=== PATIENT | male | born 1955 | race Caucasian/White ===

== ENCOUNTER 2018-03-06 11:01 | Inpatient (IN) | payer MEDICAID ==
[2018-03-06] VITALS (7 sets, daily range): BP systolic 108–143; BP diastolic 51–96
[~2018-03-06] VITALS: Ht 172.7 cm; Wt 83.0 kg
[~2018-03-06 11:01] MED LIST: CLOP75TA16 PO; FAMO20TA8 PO; FERR210T PO; INSU100V3 SUBCUT; NPH,100V SQ; OMEG-31 PO
[2018-03-06 11:47] LABS: BASOPHILS % 2.4 % (0.0-2.0); EOSINOPHILS % 4.9 % (0.0-5.0); HEMATOCRIT. 29.5 % (42.0-52.0); HEMOGLOBIN. 9.7 g/dL (14.0-18.0); LYMPHOCYTES % 13.9 % (20.0-50.0); MEAN CORPUSCULAR HEMOGLOBIN 30.2 pg (28.0-32.0); MEAN CORPUSCULAR VOLUME 91.8 fL (80.0-94.0); MEAN PLATELET VOLUME 10.6 fl (7.4-10.4); MONOCYTES % 10.5 % (2.0-8.0); NEUTROPHILS % 68.3 % (40.0-76.0); PLATELET 88 x1000/uL (130-400); RED BLOOD CELL COUNT 3.22 mill/uL (4.7-6.1); RED CELL DISTRIBUTION WIDTH 16.3 % (11.6-14.6)
[2018-03-06 12:28] LABS: INR 1.1; PARTIAL THROMBOPLASTIN TIME 27.8 sec (23.4-31.0)
[2018-03-06] MEDS ORDERED: LIDOCAINE HCL 1% 20ML VIAL (Pyxis) INJ ONE (12:52)
[2018-03-06] MEDS ORDERED: ISOS60TA4 PO (12:53)
[2018-03-06] MEDS ORDERED: IODIXANOL 320MG/ML 100 ML BOTTLE IV ONE (12:53)
[2018-03-06] MEDS ORDERED: ASPI-1159 PO (12:53)
[2018-03-06] MEDS ORDERED: ATOR-2 PO (12:53)
[2018-03-06] MEDS ORDERED: GABA-529 PO (12:53)
[2018-03-06] MEDS ORDERED: METO-539 PO (12:53)
[2018-03-06] MEDS ORDERED: FENTANYL CITRATE/PF 50MCG/ML 2ML VIAL ONE (13:31)
[2018-03-06] MEDS ORDERED: MIDAZOLAM HCL 2 MG/2 ML VIAL ONE (13:31)
[2018-03-06] MEDS ORDERED: IOHEXOL-300 100 ML BOTTLE ONE (13:53)
[2018-03-06] MEDS ORDERED: IODIXANOL 320MG/ML 200ML BOTTLE ONE (14:10)
[2018-03-06] MEDS ORDERED: ATROPINE SULFATE 1MG/10ML SYR IV PRN (14:30)
[2018-03-06] MEDS ORDERED: ACETAMINOPHEN 325MG TABLET PO PRN (14:30)
[2018-03-06] MEDS ORDERED: ONDANSETRON HCL 4MG/2ML VIAL IV PRN (14:30)
[2018-03-06] MEDS ORDERED: MORPHINE SULFATE 4 MG/ML CPJ (NOT FOR IM USE) IV PRN (14:30)
[2018-03-06] MEDS ORDERED: ASPIRIN 325MG TABLET ONE (14:34)
[2018-03-06] MEDS ORDERED: CLOPIDOGREL 75MG TABLET ONE (14:35)
[2018-03-06] MEDS ORDERED: HEPARIN SODIUM 1,000 UNIT/1ML VIAL IV ONE (14:44)
[2018-03-06] MEDS ORDERED: NITROGLYCERIN 50MCG/ML 10ML VIAL (CATH LAB) IV ONE (15:00)
[2018-03-06] MEDS ORDERED: NICARDIPINE 100MCG/ML 10ML VIAL (CATH LAB) IV ONE (15:00)
[2018-03-06] MEDS: GABAPENTIN 100MG CAPSULE PO SCH (18:36)
[2018-03-06] MEDS ORDERED: ATORVASTATIN CALCIUM 40MG TABLET PO SCH (21:00)
[2018-03-07] VITALS (16 sets, daily range): BP systolic 98–167; BP diastolic 36–98
[2018-03-07 07:33] LABS: BASOPHILS % 1.3 % (0.0-2.0); EOSINOPHILS % 5.6 % (0.0-5.0); HEMATOCRIT. 26.4 % (42.0-52.0); HEMOGLOBIN. 8.7 g/dL (14.0-18.0); LYMPHOCYTES % 7.4 % (20.0-50.0); MEAN CORPUSCULAR HEMOGLOBIN 30.1 pg (28.0-32.0); MEAN CORPUSCULAR VOLUME 91.3 fL (80.0-94.0); MONOCYTES % 9.3 % (2.0-8.0); NEUTROPHILS % 76.4 % (40.0-76.0); PLATELET 95 x1000/uL (130-400); RED BLOOD CELL COUNT 2.89 mill/uL (4.7-6.1); RED CELL DISTRIBUTION WIDTH 15.9 % (11.6-14.6)
[2018-03-07] MEDS: GABAPENTIN 100MG CAPSULE PO SCH ×2 (08:47→14:29)
[2018-03-07] MEDS ORDERED: ISOSORBIDE MONONITRATE 120MG TABLET SR 24HR PO SCH (09:00)
[2018-03-07] MEDS ORDERED: CLOPIDOGREL 75MG TABLET PO SCH (09:00)
[2018-03-07] MEDS ORDERED: ASPIRIN 81MG EC TABLET PO SCH (09:00)
[2018-03-07] MEDS ORDERED: FISH OIL/OMEGA-3 FATTY ACIDS 1000MG CAPSULE PO SCH ×2 (09:00→11:00)
[2018-03-07] MEDS ORDERED: METOPROLOL TARTRATE 50MG TABLET PO SCH (09:00)
[2018-03-07] MEDS ORDERED: FOLIC ACID/VITAMIN B COMP W-C TABLET PO SCH (18:00)
== END 2018-03-07 22:42 | disposition home or self-care (01) | DRG 175 ==
LOC: CCL 11:01 → 3WST 11:02
PROVIDERS: ADMIT Internal Medicine Cardiovascular Disease; ATTEND Internal Medicine Cardiovascular Disease
PROC: 4A023N7 Measurement of Cardiac Sampling and Pressure, Left Heart, Percutaneous Approach (ICD-10-PCS; principal; 2018-03-06)
PROC: 027034Z Dilation of Coronary Artery, One Artery with Drug-eluting Intraluminal Device, Percutaneous Approach (ICD-10-PCS; 2018-03-06)
PROC: B2111ZZ Fluoroscopy of Multiple Coronary Arteries using Low Osmolar Contrast (ICD-10-PCS; 2018-03-06)
PROC: B41F1ZZ Fluoroscopy of Right Lower Extremity Arteries using Low Osmolar Contrast (ICD-10-PCS; 2018-03-06)
PROC: 5A1D70Z Performance of Urinary Filtration, Intermittent, Less than 6 Hours Per Day (ICD-10-PCS; 2018-03-07)
DX: I25.10 Atherosclerotic heart disease of native coronary artery without angina pectoris (principal); I12.0 Hypertensive chronic kidney disease with stage 5 chronic kidney disease or end stage renal disease; N18.6 End stage renal disease; E78.5 Hyperlipidemia, unspecified; Z99.2 Dependence on renal dialysis
CPT/HCPCS: 36415; 80048; 82962; 85025; 85347; 85610; 85730; 92928; 93005; 93454; C1760; C1769; C1874; C1887; C1893; J1644; J2250; J3010; J3490; Q9967

== ENCOUNTER 2018-07-11 13:49 | Inpatient (IN) | payer MEDICAID ==
[~2018-07-11] VITALS: Ht 170.2 cm; Wt 98.1 kg
[~2018-07-11 13:49] MED LIST changes: +ASPI-1159 PO; +ATOR-2 PO; +GABA-529 PO; +ISOS60TA4 PO; +METO-539 PO
[2018-07-11 14:47] LABS: HEMATOCRIT. 27.2 % (42.0-52.0); HEMOGLOBIN. 8.7 g/dL (14.0-18.0); MEAN CORPUSCULAR HEMOGLOBIN 27.5 pg (28.0-32.0); MEAN CORPUSCULAR VOLUME 85.9 fL (80.0-94.0); MEAN PLATELET VOLUME 9.6 fl (7.4-10.4); PLATELET 315 x1000/uL (130-400); RED BLOOD CELL COUNT 3.17 mill/uL (4.7-6.1); RED CELL DISTRIBUTION WIDTH 18.6 % (11.6-14.6)
[2018-07-11 14:53] LABS: CHLORIDE 87 mEq/L (98-107)
[2018-07-11 14:57] LABS: ETHANOL BLOOD < 10 mg/dL
[2018-07-11 15:10] LABS: PLATELET ESTIMATE NORMAL
[2018-07-11] MEDS ORDERED: PIPERACILLIN/TAZ 3.375G PREMIX 50 ML IV ONE (15:30)
[2018-07-11] MEDS ORDERED: ONDANSETRON HCL 4MG/2ML INJ IV ONE (15:30)
[2018-07-11] MEDS ORDERED: CLINDAMYCIN 600 MG in DEXTROSE 5% WATER 50 ML IV ONE (15:30)
[2018-07-11] MEDS ORDERED: GENTAMICIN 80MG PREMIX 100 ML IV ONE (15:30)
[2018-07-11] MEDS ORDERED: FENTANYL CITRATE/PF 50MCG/ML 2ML VIAL IV ONE (15:30)
[2018-07-11] MEDS ORDERED: ASPIRIN 81MG TABLET PO ONE (15:30)
[2018-07-11] MEDS ORDERED: LEVOFLOXACIN 500MG PREMIX 100 ML IV ONE (16:00)
[2018-07-11 16:39] LABS: PARTIAL THROMBOPLASTIN TIME 72.3 sec (23.4-31.0)
[2018-07-11 16:40] LABS: PROTHROMBIN TIME 111.8 sec (9.1-11.1)
[2018-07-11 16:41] LABS: INR 11.6
[2018-07-11 16:54] LABS: PHOSPHORUS 5.9 mg/dL (2.5-4.9)
[2018-07-11] MEDS ORDERED: DIATR MEGLU/DIATRIZOATE SOLN 120ML ONE (17:21)
[2018-07-11 23:00] VITALS: BP 104/53
[2018-07-12] VITALS (11 sets, daily range): BP systolic 96–119; BP diastolic 49–67
[2018-07-12] MEDS ORDERED: DEXTROSE 50% WATER 50ML SYRINGE IV PRN (01:30)
[2018-07-12] MEDS ORDERED: HYDROMORPHONE HCL/PF 2MG/ML CPJ IV PRN (01:30)
[2018-07-12] MEDS ORDERED: VANCOMYCIN 1250MG in DEXTROSE 5% WATER 250ML IV SCH (03:00)
[2018-07-12] MEDS ORDERED: PIPERACILLIN/TAZOBACTAM 2.25 G in DEXTROSE 5% WATER 50 ML IV SCH (03:00)
[2018-07-12] MEDS: BLOOD SUGAR DIAGNOSTIC STRIP TEST SCH ×4 (07:30→20:59)
[2018-07-12 07:37] LABS: PHOSPHORUS 6.1 mg/dL (2.5-4.9)
[2018-07-12 07:53] LABS: HEMATOCRIT. 23.6 % (42.0-52.0); HEMOGLOBIN. 7.6 g/dL (14.0-18.0); MEAN CORPUSCULAR HEMOGLOBIN 27.5 pg (28.0-32.0); MEAN CORPUSCULAR VOLUME 85.6 fL (80.0-94.0); MEAN PLATELET VOLUME 9.7 fl (7.4-10.4); PLATELET 274 x1000/uL (130-400); RED BLOOD CELL COUNT 2.75 mill/uL (4.7-6.1); RED CELL DISTRIBUTION WIDTH 18.6 % (11.6-14.6)
[2018-07-12] MEDS ORDERED: PHYTONADIONE 10MG/ML AMP SUBCUT SCH (08:00)
[2018-07-12] MEDS: INSULIN LISPRO 100 UNITS/ML SUBCUT SCH ×4 (08:00→21:00)
[2018-07-12] MEDS: METOPROLOL TARTRATE 25MG TABLET PO SCH ×2 (09:00→21:00)
[2018-07-12] MEDS: FAMOTIDINE 20MG TABLET PO SCH (09:00)
[2018-07-12] MEDS ORDERED: MEDICATION NOT ON FORMULARY EA (Gabapentin 100 MG) PO SCH (09:00)
[2018-07-12] MEDS: ASPIRIN 81MG TABLET PO SCH (09:00)
[2018-07-12] MEDS: GABAPENTIN 100MG CAPSULE PO SCH ×3 (09:00→17:33)
[2018-07-12] MEDS ORDERED: MEDICATION NOT ON FORMULARY EA (Famotidine 20 MG) PO SCH (09:00)
[2018-07-12] MEDS ORDERED: MEDICATION NOT ON FORMULARY EA (Metoprolol Tartrate 25 MG) PO SCH (09:00)
[2018-07-12] MEDS ORDERED: ISOSORBIDE MONONITRATE PO SCH (09:00)
[2018-07-12] MEDS ORDERED: MEDICATION NOT ON FORMULARY EA (Atorvastatin Calcium 80 MG) PO SCH (09:00)
[2018-07-12] MEDS: CLOPIDOGREL 75MG TABLET PO SCH (09:00)
[2018-07-12] MEDS: ISOSORBIDE MONONITRATE 120MG TABLET SR 24HR PO SCH (09:00)
[2018-07-12] MEDS ORDERED: MEDICATION NOT ON FORMULARY EA (Clopidogrel Bisulfate (Plavix) 75 MG) PO SCH (09:00)
[2018-07-12] MEDS: FOLIC ACID/VITAMIN B COMP W-C TABLET PO SCH (09:15)
[2018-07-12 11:29] LABS: CREATINE KINASE MB FRACTION 2.1 ng/mL (0.5-3.6)
[2018-07-12] MEDS ORDERED: VANCOMYCIN 750 MG PREMIX 150 ML IV SCH (14:00)
[2018-07-12 14:38] LABS: PLATELET ESTIMATE NORMAL
[2018-07-12] MEDS: PIPERACILLIN/TAZ 2.25G PREMIX 50 ML IV SCH ×2 (15:00→22:00)
[2018-07-12] MEDS ORDERED: IOHEXOL-350 100 ML BOTTLE ONE (15:39)
[2018-07-12] MEDS: HYDROMORPHONE HCL/PF 2MG/ML CPJ IV PRN ×2 (16:49→21:46)
[2018-07-12] MEDS ORDERED: EPOETIN ALFA 4000UNITS/ML VIAL SUBCUT SCH (21:00)
[2018-07-12] MEDS: ATORVASTATIN CALCIUM 40MG TABLET PO SCH (21:45)
[2018-07-12] MEDS: EPOETIN ALFA 10000UNITS/ML VIAL SUBCUT SCH (21:47)
[2018-07-12] MEDS ORDERED: INSULIN GLARGINE UD 100 UNITS/ML SYR SUBCUT SCH (22:00)
[2018-07-13] VITALS (12 sets, daily range): BP systolic 91–162; BP diastolic 49–93
[2018-07-13] MEDS: PIPERACILLIN/TAZ 2.25G PREMIX 50 ML IV SCH ×3 (06:11→21:59)
[2018-07-13] MEDS: HYDROMORPHONE HCL/PF 2MG/ML CPJ IV PRN ×3 (07:07→21:30)
[2018-07-13 07:21] LABS: HEMATOCRIT. 23.4 % (42.0-52.0); HEMOGLOBIN. 7.6 g/dL (14.0-18.0); MEAN CORPUSCULAR HEMOGLOBIN 27.5 pg (28.0-32.0); MEAN CORPUSCULAR VOLUME 84.7 fL (80.0-94.0); MEAN PLATELET VOLUME 9.4 fl (7.4-10.4); PLATELET 214 x1000/uL (130-400); RED BLOOD CELL COUNT 2.76 mill/uL (4.7-6.1); RED CELL DISTRIBUTION WIDTH 18.6 % (11.6-14.6)
[2018-07-13] MEDS: BLOOD SUGAR DIAGNOSTIC STRIP TEST SCH ×4 (07:49→21:45)
[2018-07-13] MEDS: INSULIN LISPRO 100 UNITS/ML SUBCUT SCH ×4 (07:50→21:28)
[2018-07-13 08:00] LABS: PROTHROMBIN TIME 100.1 sec (9.1-11.1)
[2018-07-13 08:02] LABS: INR 10.4
[2018-07-13] MEDS: ISOSORBIDE MONONITRATE 120MG TABLET SR 24HR PO SCH (09:00)
[2018-07-13] MEDS: CLOPIDOGREL 75MG TABLET PO SCH (09:00)
[2018-07-13] MEDS: ASPIRIN 81MG TABLET PO SCH (09:00)
[2018-07-13] MEDS: METOPROLOL TARTRATE 25MG TABLET PO SCH ×2 (09:00→21:46)
[2018-07-13] MEDS: FAMOTIDINE 20MG TABLET PO SCH (09:00)
[2018-07-13] MEDS: FOLIC ACID/VITAMIN B COMP W-C TABLET PO SCH (09:00)
[2018-07-13] MEDS: GABAPENTIN 100MG CAPSULE PO SCH ×3 (09:00→18:35)
[2018-07-13 10:00] LABS: NUCLEATED RED BLOOD CELLS 1 /100 WBC; PLATELET ESTIMATE NORMAL
[2018-07-13 10:08] LABS: LDL CHOLESTEROL 63 mg/dL (5-100)
[2018-07-13 10:11] LABS: HDL CHOLESTEROL 28 mg/dL (40-59); T4 FREE 0.97 ng/dL (0.76-1.46)
[2018-07-13] MEDS: DOCUSATE SODIUM 250MG CAPSULE PO SCH (10:30)
[2018-07-13] MEDS ORDERED: PHYTONADIONE 10MG/ML AMP SUBCUT NR (10:30)
[2018-07-13] MEDS ORDERED: LACTULOSE 20G/30ML UDC PO PRN (10:30)
[2018-07-13] MEDS ORDERED: BISACODYL 10MG SUPP PR PRN (10:30)
[2018-07-13 16:12] LABS: TOTAL IRON BINDING CAPACITY 119 ug/dL (250-450)
[2018-07-13 20:34] LABS: CREATINE KINASE MB FRACTION 2.1 ng/mL (0.5-3.6)
[2018-07-13] MEDS: ATORVASTATIN CALCIUM 40MG TABLET PO SCH (21:22)
[2018-07-13] MEDS: INSULIN GLARGINE UD 100 UNITS/ML SYR SUBCUT SCH (22:07)
[2018-07-14] VITALS (15 sets, daily range): BP systolic 88–157; BP diastolic 44–74
[2018-07-14] MEDS: PIPERACILLIN/TAZ 2.25G PREMIX 50 ML IV SCH ×3 (05:18→21:35)
[2018-07-14 07:11] LABS: HEMATOCRIT. 21.7 % (42.0-52.0); MEAN CORPUSCULAR HEMOGLOBIN 27.3 pg (28.0-32.0); MEAN CORPUSCULAR VOLUME 85.2 fL (80.0-94.0); MEAN PLATELET VOLUME 9.3 fl (7.4-10.4); PLATELET 205 x1000/uL (130-400); RED BLOOD CELL COUNT 2.54 mill/uL (4.7-6.1); RED CELL DISTRIBUTION WIDTH 19.4 % (11.6-14.6)
[2018-07-14] MEDS: BLOOD SUGAR DIAGNOSTIC STRIP TEST SCH ×4 (07:30→21:02)
[2018-07-14 07:31] LABS: INR 2.2; PROTHROMBIN TIME 22.2 sec (9.1-11.1)
[2018-07-14 07:44] LABS: HEMOGLOBIN. 6.9 g/dL (14.0-18.0)
[2018-07-14] MEDS: INSULIN LISPRO 100 UNITS/ML SUBCUT SCH ×4 (08:00→21:13)
[2018-07-14] MEDS: ASPIRIN 81MG TABLET PO SCH (09:00)
[2018-07-14] MEDS: FAMOTIDINE 20MG TABLET PO SCH (09:00)
[2018-07-14] MEDS: FOLIC ACID/VITAMIN B COMP W-C TABLET PO SCH (09:00)
[2018-07-14] MEDS: METOPROLOL TARTRATE 25MG TABLET PO SCH ×2 (09:00→21:05)
[2018-07-14] MEDS: DOCUSATE SODIUM 250MG CAPSULE PO SCH (09:00)
[2018-07-14] MEDS: ISOSORBIDE MONONITRATE 120MG TABLET SR 24HR PO SCH (09:00)
[2018-07-14] MEDS: GABAPENTIN 100MG CAPSULE PO SCH ×4 (09:00→17:00)
[2018-07-14] MEDS: CLOPIDOGREL 75MG TABLET PO SCH (09:00)
[2018-07-14 11:44] LABS: PLATELET ESTIMATE NORMAL
[2018-07-14] MEDS ORDERED: VANCOMYCIN 1 G PREMIX 200 ML IV SCH (16:00)
[2018-07-14 20:03] LABS: INR 1.6; PROTHROMBIN TIME 16.1 sec (9.1-11.1)
[2018-07-14] MEDS: EPOETIN ALFA 10000UNITS/ML VIAL SUBCUT SCH (21:05)
[2018-07-14] MEDS: ATORVASTATIN CALCIUM 40MG TABLET PO SCH (21:05)
[2018-07-14] MEDS: HYDROMORPHONE HCL/PF 2MG/ML CPJ IV PRN (21:06)
[2018-07-14] MEDS: INSULIN GLARGINE UD 100 UNITS/ML SYR SUBCUT SCH (21:15)
[2018-07-14] MEDS: ONDANSETRON HCL 4MG/2ML INJ IV PRN (23:31)
[2018-07-15] VITALS (17 sets, daily range): BP systolic 90–147; BP diastolic 45–90
[2018-07-15] MEDS: ONDANSETRON HCL 4MG/2ML INJ IV PRN ×3 (04:56→12:53)
[2018-07-15] MEDS: PIPERACILLIN/TAZ 2.25G PREMIX 50 ML IV SCH ×3 (06:22→22:33)
[2018-07-15 07:24] LABS: PHOSPHORUS 4.3 mg/dL (2.5-4.9)
[2018-07-15] MEDS: BLOOD SUGAR DIAGNOSTIC STRIP TEST SCH ×4 (08:07→21:00)
[2018-07-15] MEDS: DOCUSATE SODIUM 250MG CAPSULE PO SCH (08:29)
[2018-07-15] MEDS: FOLIC ACID/VITAMIN B COMP W-C TABLET PO SCH (08:29)
[2018-07-15] MEDS: GABAPENTIN 100MG CAPSULE PO SCH ×3 (08:29→17:43)
[2018-07-15] MEDS: FAMOTIDINE 20MG TABLET PO SCH (08:30)
[2018-07-15] MEDS: METOPROLOL TARTRATE 25MG TABLET PO SCH ×2 (08:30→21:00)
[2018-07-15] MEDS: ISOSORBIDE MONONITRATE 120MG TABLET SR 24HR PO SCH (08:30)
[2018-07-15] MEDS: INSULIN LISPRO 100 UNITS/ML SUBCUT SCH ×4 (08:37→22:36)
[2018-07-15] MEDS: CLOPIDOGREL 75MG TABLET PO SCH (08:44)
[2018-07-15] MEDS: ASPIRIN 81MG TABLET PO SCH (08:44)
[2018-07-15] MEDS ORDERED: ENOXAPARIN 100MG/ML SYR SUBCUT SCH (09:00)
[2018-07-15] MEDS ORDERED: LIDOCAINE HCL 1% 20ML VIAL (Pyxis) INJ ONE (10:07)
[2018-07-15] MEDS: ATORVASTATIN CALCIUM 40MG TABLET PO SCH (22:34)
[2018-07-15] MEDS: HYDROCODONE/ACETAMINOPHEN 5/325MG TABLET PO PRN (22:34)
[2018-07-15] MEDS: INSULIN GLARGINE UD 100 UNITS/ML SYR SUBCUT SCH (22:37)
[2018-07-16] VITALS (12 sets, daily range): BP systolic 101–157; BP diastolic 24–97
[2018-07-16] MEDS: PIPERACILLIN/TAZ 2.25G PREMIX 50 ML IV SCH ×4 (05:33→21:11)
[2018-07-16 07:42] LABS: HEMATOCRIT. 26.3 % (42.0-52.0); HEMOGLOBIN. 8.6 g/dL (14.0-18.0); MEAN CORPUSCULAR HEMOGLOBIN 27.8 pg (28.0-32.0); MEAN CORPUSCULAR VOLUME 84.5 fL (80.0-94.0); MEAN PLATELET VOLUME 8.5 fl (7.4-10.4); PLATELET 189 x1000/uL (130-400); RED BLOOD CELL COUNT 3.11 mill/uL (4.7-6.1); RED CELL DISTRIBUTION WIDTH 18.3 % (11.6-14.6)
[2018-07-16 07:45] LABS: INR 1.3; PROTHROMBIN TIME 13.1 sec (9.1-11.1)
[2018-07-16] MEDS: INSULIN LISPRO 100 UNITS/ML SUBCUT SCH ×3 (08:00→18:40)
[2018-07-16] MEDS: BLOOD SUGAR DIAGNOSTIC STRIP TEST SCH ×4 (08:00→21:13)
[2018-07-16 08:05] LABS: PHOSPHORUS 4.7 mg/dL (2.5-4.9)
[2018-07-16] MEDS: GABAPENTIN 100MG CAPSULE PO SCH ×3 (09:30→16:38)
[2018-07-16] MEDS: FAMOTIDINE 20MG TABLET PO SCH (09:31)
[2018-07-16] MEDS: FOLIC ACID/VITAMIN B COMP W-C TABLET PO SCH (09:31)
[2018-07-16] MEDS: DOCUSATE SODIUM 250MG CAPSULE PO SCH (09:31)
[2018-07-16] MEDS: ISOSORBIDE MONONITRATE 120MG TABLET SR 24HR PO SCH (09:31)
[2018-07-16] MEDS: METOPROLOL TARTRATE 25MG TABLET PO SCH ×2 (09:32→21:11)
[2018-07-16] MEDS: HYDROCODONE/ACETAMINOPHEN 5/325MG TABLET PO PRN ×2 (11:31→21:12)
[2018-07-16 13:32] LABS: PLATELET ESTIMATE NORMAL
[2018-07-16] MEDS: HYDROMORPHONE HCL/PF 2MG/ML CPJ IV PRN (15:11)
[2018-07-16] MEDS ORDERED: VANCOMYCIN 1 G PREMIX 200 ML IV SCH (16:00)
[2018-07-16] MEDS: ATORVASTATIN CALCIUM 40MG TABLET PO SCH (21:11)
[2018-07-16] MEDS: PANTOPRAZOLE SODIUM 40 MG/VIAL IV SCH (21:13)
[2018-07-17] VITALS (12 sets, daily range): BP systolic 112–143; BP diastolic 54–87
[2018-07-17] MEDS: INSULIN LISPRO 100 UNITS/ML SUBCUT SCH ×5 (00:20→21:00)
[2018-07-17] MEDS: INSULIN GLARGINE UD 100 UNITS/ML SYR SUBCUT SCH ×2 (00:21→21:35)
[2018-07-17] MEDS: BLOOD SUGAR DIAGNOSTIC STRIP TEST SCH ×4 (07:09→21:35)
[2018-07-17] MEDS: PIPERACILLIN/TAZ 2.25G PREMIX 50 ML IV SCH ×3 (07:34→21:34)
[2018-07-17 07:50] LABS: HEMATOCRIT. 27.8 % (42.0-52.0); HEMOGLOBIN. 8.9 g/dL (14.0-18.0); MEAN CORPUSCULAR HEMOGLOBIN 27.9 pg (28.0-32.0); MEAN CORPUSCULAR VOLUME 86.7 fL (80.0-94.0); MEAN PLATELET VOLUME 9.1 fl (7.4-10.4); PLATELET 206 x1000/uL (130-400); RED CELL DISTRIBUTION WIDTH 18.3 % (11.6-14.6)
[2018-07-17 07:53] LABS: INR 1.3; PROTHROMBIN TIME 12.7 sec (9.1-11.1)
[2018-07-17] MEDS: HYDROMORPHONE HCL/PF 2MG/ML CPJ IV PRN ×2 (07:58→14:06)
[2018-07-17] MEDS: FOLIC ACID/VITAMIN B COMP W-C TABLET PO SCH (09:19)
[2018-07-17] MEDS: ISOSORBIDE MONONITRATE 120MG TABLET SR 24HR PO SCH (09:19)
[2018-07-17] MEDS: DOCUSATE SODIUM 250MG CAPSULE PO SCH (09:19)
[2018-07-17] MEDS: FAMOTIDINE 20MG TABLET PO SCH (09:19)
[2018-07-17] MEDS: METOPROLOL TARTRATE 25MG TABLET PO SCH ×2 (09:20→21:34)
[2018-07-17] MEDS: PANTOPRAZOLE SODIUM 40 MG/VIAL IV SCH ×2 (09:20→21:33)
[2018-07-17] MEDS: GABAPENTIN 100MG CAPSULE PO SCH ×3 (09:20→18:08)
[2018-07-17 15:49] LABS: PLATELET ESTIMATE NORMAL
[2018-07-17] MEDS ORDERED: MIDAZOLAM HCL 5 MG/5 ML VIAL ONE (16:19)
[2018-07-17] MEDS ORDERED: FENTANYL CITRATE/PF 50MCG/ML 2ML VIAL ONE (16:19)
[2018-07-17] MEDS ORDERED: SIMETHICONE 40 MG/0.6 ML 30ML ONE (16:19)
[2018-07-17] MEDS ORDERED: MIDAZOLAM HCL 2 MG/2 ML VIAL IV PRN (16:32)
[2018-07-17] MEDS ORDERED: ENOXAPARIN 100MG/ML SYR SUBCUT SCH (18:00)
[2018-07-17] MEDS: ATORVASTATIN CALCIUM 40MG TABLET PO SCH (21:34)
[2018-07-17] MEDS: EPOETIN ALFA 10000UNITS/ML VIAL SUBCUT SCH (21:34)
[2018-07-17] MEDS: HYDROCODONE/ACETAMINOPHEN 5/325MG TABLET PO PRN (21:52)
[2018-07-18] VITALS (22 sets, daily range): BP systolic 110–140; BP diastolic 65–97
[2018-07-18] MEDS: HYDROMORPHONE HCL/PF 2MG/ML CPJ IV PRN ×2 (03:29→19:40)
[2018-07-18] MEDS: PIPERACILLIN/TAZ 2.25G PREMIX 50 ML IV SCH ×3 (06:37→22:00)
[2018-07-18 06:40] LABS: HEMATOCRIT. 26.2 % (42.0-52.0); HEMOGLOBIN. 8.4 g/dL (14.0-18.0); MEAN CORPUSCULAR HEMOGLOBIN 27.8 pg (28.0-32.0); MEAN CORPUSCULAR VOLUME 86.3 fL (80.0-94.0); MEAN PLATELET VOLUME 9.2 fl (7.4-10.4); PLATELET 237 x1000/uL (130-400); RED BLOOD CELL COUNT 3.04 mill/uL (4.7-6.1); RED CELL DISTRIBUTION WIDTH 18.3 % (11.6-14.6)
[2018-07-18] MEDS: BLOOD SUGAR DIAGNOSTIC STRIP TEST SCH ×4 (07:30→21:00)
[2018-07-18] MEDS: INSULIN LISPRO 100 UNITS/ML SUBCUT SCH ×4 (08:00→21:00)
[2018-07-18] MEDS ORDERED: LIDOCAINE HCL 1% 20ML VIAL (Pyxis) INJ ONE (08:41)
[2018-07-18] MEDS ORDERED: IODIXANOL 320MG/ML 100 ML BOTTLE IV ONE (08:41)
[2018-07-18] MEDS ORDERED: FENTANYL CITRATE/PF 50MCG/ML 2ML VIAL ONE ×2 (08:41→10:21)
[2018-07-18] MEDS ORDERED: MIDAZOLAM HCL 2 MG/2 ML VIAL ONE ×2 (08:41→10:22)
[2018-07-18] MEDS ORDERED: IOHEXOL-300 100 ML BOTTLE ONE (09:46)
[2018-07-18] MEDS ORDERED: CEFAZOLIN 1000MG PREMIX 50 ML IV ONE (10:42)
[2018-07-18] MEDS ORDERED: ACETAMINOPHEN 325MG TABLET PO PRN (10:45)
[2018-07-18] MEDS ORDERED: ATROPINE SULFATE 1MG/10ML SYR IV PRN (10:45)
[2018-07-18] MEDS ORDERED: CLOPIDOGREL 75MG TABLET PO SCH ×2 (11:00→11:04)
[2018-07-18] MEDS ORDERED: ASPIRIN 325MG TABLET ONE (11:05)
[2018-07-18] MEDS: FOLIC ACID/VITAMIN B COMP W-C TABLET PO SCH (11:58)
[2018-07-18] MEDS: GABAPENTIN 100MG CAPSULE PO SCH ×3 (11:58→16:50)
[2018-07-18] MEDS: DOCUSATE SODIUM 250MG CAPSULE PO SCH (11:58)
[2018-07-18] MEDS: METOPROLOL TARTRATE 25MG TABLET PO SCH ×2 (11:59→21:00)
[2018-07-18] MEDS: FAMOTIDINE 20MG TABLET PO SCH (11:59)
[2018-07-18 13:34] LABS: PLATELET ESTIMATE NORMAL
[2018-07-18] MEDS: ISOSORBIDE MONONITRATE 120MG TABLET SR 24HR PO SCH (13:34)
[2018-07-18] MEDS: HYDROCODONE/ACETAMINOPHEN 5/325MG TABLET PO PRN (14:20)
[2018-07-18] MEDS ORDERED: HEPARIN SODIUM 1,000 UNIT/1ML VIAL IV ONE (15:15)
[2018-07-18] MEDS ORDERED: HEPARIN 5000 UNITS/ML VIAL IV SCH (17:30)
[2018-07-18] MEDS ORDERED: HEPARIN 5000 UNITS/ML VIAL IV NR ×2 (18:00→21:15)
[2018-07-18] MEDS ORDERED: HEPARIN 25,000 UNITS PREMIX 500 ML IV SCH (18:30)
[2018-07-18] MEDS: ATORVASTATIN CALCIUM 40MG TABLET PO SCH (21:00)
[2018-07-18] MEDS: INSULIN GLARGINE UD 100 UNITS/ML SYR SUBCUT SCH (22:36)
[2018-07-19] VITALS (90 sets, daily range): BP systolic 103–155; BP diastolic 57–88
[2018-07-19 01:34] LABS: HEMATOCRIT. 27.9 % (42.0-52.0); HEMOGLOBIN. 8.8 g/dL (14.0-18.0); MEAN CORPUSCULAR HEMOGLOBIN 27.1 pg (28.0-32.0); MEAN CORPUSCULAR VOLUME 86.1 fL (80.0-94.0); MEAN PLATELET VOLUME 8.8 fl (7.4-10.4); PLATELET 270 x1000/uL (130-400); RED BLOOD CELL COUNT 3.24 mill/uL (4.7-6.1); RED CELL DISTRIBUTION WIDTH 18.5 % (11.6-14.6)
[2018-07-19 01:58] LABS: PLATELET ESTIMATE NORMAL
[2018-07-19 02:38] LABS: INR 1.3; PROTHROMBIN TIME 12.6 sec (9.1-11.1)
[2018-07-19] MEDS ORDERED: GELATIN SPONGE,ABSORBABLE 12-7MM SPONGE ONE (03:25)
[2018-07-19] MEDS ORDERED: BACITRACIN 50,000 UNITS/VIAL ONE (03:26)
[2018-07-19] MEDS ORDERED: THROMBIN (BOVINE) 5000 UNITS/VIAL TOP ONE (03:26)
[2018-07-19] MEDS ORDERED: LIDOCAINE HCL/EPINEPHRINE 1%-EPI 1:100,000 20 ML VIAL ONE (03:28)
[2018-07-19] MEDS ORDERED: EPHEDRINE SULFATE 50MG/ML VIAL ONE (03:39)
[2018-07-19] MEDS ORDERED: PHENYLEPHRINE HCL 10 MG/ML 1ML (IV VIAL) IV ONE (03:39)
[2018-07-19] MEDS ORDERED: SODIUM CHLORIDE 0.9% 10ML VIAL ONE ×3 (03:39→04:12)
[2018-07-19] MEDS ORDERED: EPINEPHRINE 1:1000 1 MG/ML AMP ONE (03:40)
[2018-07-19] MEDS ORDERED: CEFAZOLIN SODIUM 1000MG/VIAL ONE (04:12)
[2018-07-19] MEDS ORDERED: PROPOFOL 200MG/20ML VIAL IV ONE (04:16)
[2018-07-19] MEDS ORDERED: ESMOLOL HCL 10MG/ML 10ML VIAL IV ONE (04:19)
[2018-07-19] MEDS ORDERED: FENTANYL CITRATE/PF 50MCG/ML 2ML VIAL ONE (04:21)
[2018-07-19] MEDS ORDERED: PROTAMINE SULFATE 10MG/ML VIAL 5ML IV ONE (04:23)
[2018-07-19] MEDS ORDERED: ROCURONIUM BROMIDE 10MG/ML VIAL 5ML IV ONE (04:46)
[2018-07-19] MEDS ORDERED: LEVETIRACETAM 500 MG in SODIUM CHLORIDE 0.9% 100 ML IV SCH (05:00)
[2018-07-19] MEDS ORDERED: NICARDIPINE 40MG/200ML PREMIX 200 ML IV SCH (05:00)
[2018-07-19] MEDS ORDERED: BACITRACIN 15GM TUBE TOP ONE (05:01)
[2018-07-19] MEDS ORDERED: NICARDIPINE 100 MG in SODIUM CHLORIDE 0.9% 60 ML IV PRN (05:15)
[2018-07-19] MEDS ORDERED: PROTAMINE SULFATE 10MG/ML VIAL 5ML IV NR (06:00)
[2018-07-19] MEDS ORDERED: CEFAZOLIN SODIUM 1000MG/VIAL IV SCH (06:00)
[2018-07-19] MEDS: DEXT 5%/LACTATED RINGERS 1,000 ML IV SCH (06:05)
[2018-07-19 06:08] LABS: BG BASE EXCESS -2.1 mmol/L (-2.0-2.0); BG CARBOXYHEMOGLOBIN 1.5 % (0.5-1.5); BG DEOXYHEMOGLOBIN 0.6 % (0.0-5.0); BG FRACTION INSPIRED OXYGEN 100; BG HCO3 ACT 21.3 mmol/L (22.0-26.0); BG OXYGEN SATURATION 99.4 % (92.0-98.5); BG OXYHEMOGLOBIN 97.9 % (94.0-97.0); BG PCO2 30.6 mmHg (35.0-45.0); BG PO2 243.1 mmHg (75.0-100.0); BG SAMPLE SITE RIGHT RADIAL; BG TIDAL VOLUME(mL) 700 mL; BG VENT MODE VENT - A/C; BG VENT RATE 12 set
[2018-07-19] MEDS: BLOOD SUGAR DIAGNOSTIC STRIP TEST SCH ×4 (06:30→21:12)
[2018-07-19] MEDS: INSULIN LISPRO 100 UNITS/ML SUBCUT SCH ×4 (06:48→21:11)
[2018-07-19 07:12] LABS: HEMATOCRIT. 24.9 % (42.0-52.0); HEMOGLOBIN. 7.9 g/dL (14.0-18.0); MEAN CORPUSCULAR HEMOGLOBIN 27.6 pg (28.0-32.0); MEAN CORPUSCULAR VOLUME 86.5 fL (80.0-94.0); MEAN PLATELET VOLUME 9.1 fl (7.4-10.4); PLATELET 207 x1000/uL (130-400); RED BLOOD CELL COUNT 2.88 mill/uL (4.7-6.1); RED CELL DISTRIBUTION WIDTH 18.8 % (11.6-14.6)
[2018-07-19] MEDS: CEFAZOLIN 1000MG PREMIX 50 ML IV SCH ×2 (07:44→14:04)
[2018-07-19 08:31] LABS: PLATELET ESTIMATE NORMAL
[2018-07-19] MEDS: LEVETIRACETAM 500 MG in SODIUM CHLORIDE 0.9% 100 ML IV SCH ×2 (08:54→21:11)
[2018-07-19] MEDS: FOLIC ACID/VITAMIN B COMP W-C TABLET PO SCH (09:00)
[2018-07-19] MEDS: METOPROLOL TARTRATE 25MG TABLET PO SCH ×2 (09:00→21:12)
[2018-07-19] MEDS: GABAPENTIN 100MG CAPSULE PO SCH ×3 (09:00→16:57)
[2018-07-19] MEDS: FAMOTIDINE 20MG TABLET PO SCH (09:00)
[2018-07-19] MEDS: DOCUSATE SODIUM 250MG CAPSULE PO SCH (09:00)
[2018-07-19] MEDS ORDERED: CLOPIDOGREL 75MG TABLET PO SCH (09:00)
[2018-07-19] MEDS: DEXAMETHASONE 4MG/ML 1ML VIAL IV SCH ×3 (09:18→21:10)
[2018-07-19] MEDS: PIPERACILLIN/TAZ 2.25G PREMIX 50 ML IV SCH ×3 (09:18→22:08)
[2018-07-19] MEDS: FAMOTIDINE 20MG/2ML VIAL IV SCH (12:23)
[2018-07-19] MEDS: INSULIN GLARGINE UD 100 UNITS/ML SYR SUBCUT SCH (21:11)
[2018-07-20] VITALS (79 sets, daily range): BP systolic 79–140; BP diastolic 38–73
[2018-07-20] MEDS: DEXAMETHASONE 4MG/ML 1ML VIAL IV SCH ×4 (02:15→21:22)
[2018-07-20] MEDS: DEXT 5%/LACTATED RINGERS 1,000 ML IV SCH ×2 (03:11→21:25)
[2018-07-20 05:42] LABS: HEMATOCRIT. 26.5 % (42.0-52.0); HEMOGLOBIN. 8.3 g/dL (14.0-18.0); MEAN CORPUSCULAR VOLUME 86.1 fL (80.0-94.0); MEAN PLATELET VOLUME 9.5 fl (7.4-10.4); PLATELET 292 x1000/uL (130-400); RED BLOOD CELL COUNT 3.08 mill/uL (4.7-6.1); RED CELL DISTRIBUTION WIDTH 18.9 % (11.6-14.6)
[2018-07-20] MEDS: BLOOD SUGAR DIAGNOSTIC STRIP TEST SCH ×4 (06:10→21:23)
[2018-07-20] MEDS: INSULIN LISPRO 100 UNITS/ML SUBCUT SCH ×4 (06:12→21:23)
[2018-07-20 06:16] LABS: PHOSPHORUS 5.6 mg/dL (2.5-4.9)
[2018-07-20 07:25] LABS: BG CARBOXYHEMOGLOBIN 0.9 % (0.5-1.5); BG DEOXYHEMOGLOBIN 0.8 % (0.0-5.0); BG HCO3 ACT 22.1 mmol/L (22.0-26.0); BG METHEMOGLOBIN 0.3 % (0.0-1.5); BG OXYGEN SATURATION 99.2 % (92.0-98.5); BG PCO2 29.9 mmHg (35.0-45.0); BG PH 7.486 (7.350-7.450); BG PO2 207.3 mmHg (75.0-100.0); BG SAMPLE SITE RIGHT RADIAL; BG TIDAL VOLUME(mL) 700 mL; BG TOTAL HEMOGLOBIN 7.9 g/dL (12.0-18.0); BG VENT MODE VENT - A/C; BG VENT RATE 12 set
[2018-07-20 07:26] LABS: PLATELET ESTIMATE NORMAL
[2018-07-20] MEDS: FOLIC ACID/VITAMIN B COMP W-C TABLET PO SCH (08:38)
[2018-07-20] MEDS: DOCUSATE SODIUM 250MG CAPSULE PO SCH (08:38)
[2018-07-20] MEDS: METOPROLOL TARTRATE 25MG TABLET PO SCH ×2 (08:38→21:22)
[2018-07-20] MEDS: GABAPENTIN 100MG CAPSULE PO SCH ×3 (08:39→17:00)
[2018-07-20] MEDS: LEVETIRACETAM 500 MG in SODIUM CHLORIDE 0.9% 100 ML IV SCH ×2 (08:41→21:22)
[2018-07-20] MEDS: FAMOTIDINE 20MG/2ML VIAL IV SCH (08:41)
[2018-07-20 14:59] LABS: BG BASE EXCESS 4.9 mmol/L (-2.0-2.0); BG CARBOXYHEMOGLOBIN 0.7 % (0.5-1.5); BG DEOXYHEMOGLOBIN 0.4 % (0.0-5.0); BG FRACTION INSPIRED OXYGEN 100; BG HCO3 ACT 27.9 mmol/L (22.0-26.0); BG METHEMOGLOBIN 0.3 % (0.0-1.5); BG OXYGEN SATURATION 99.6 % (92.0-98.5); BG OXYHEMOGLOBIN 98.6 % (94.0-97.0); BG PCO2 34.6 mmHg (35.0-45.0); BG PH 7.524 (7.350-7.450); BG PO2 518.6 mmHg (75.0-100.0); BG SAMPLE SITE RIGHT RADIAL; BG TIDAL VOLUME(mL) 600 mL; BG TOTAL HEMOGLOBIN 8.2 g/dL (12.0-18.0); BG VENT MODE VENT - A/C; BG VENT RATE 10 set
[2018-07-20 15:27] LABS: BG BASE EXCESS 3.9 mmol/L (-2.0-2.0); BG CARBOXYHEMOGLOBIN 0.8 % (0.5-1.5); BG DEOXYHEMOGLOBIN 0.4 % (0.0-5.0); BG FRACTION INSPIRED OXYGEN 100; BG HCO3 ACT 27.5 mmol/L (22.0-26.0); BG METHEMOGLOBIN 0.3 % (0.0-1.5); BG OXYGEN SATURATION 99.6 % (92.0-98.5); BG OXYHEMOGLOBIN 98.5 % (94.0-97.0); BG PCO2 36.6 mmHg (35.0-45.0); BG PH 7.493 (7.350-7.450); BG PO2 493.1 mmHg (75.0-100.0); BG SAMPLE SITE RIGHT RADIAL; BG TIDAL VOLUME(mL) 550 mL; BG TOTAL HEMOGLOBIN 8.1 g/dL (12.0-18.0); BG VENT MODE VENT - A/C; BG VENT RATE 10 set
[2018-07-20 16:12] LABS: BG BASE EXCESS 0.5 mmol/L (-2.0-2.0); BG CARBOXYHEMOGLOBIN 0.3 % (0.5-1.5); BG DEOXYHEMOGLOBIN 11.2 % (0.0-5.0); BG FRACTION INSPIRED OXYGEN 44; BG HCO3 ACT 25.6 mmol/L (22.0-26.0); BG METHEMOGLOBIN 0.2 % (0.0-1.5); BG OXYGEN SATURATION 88.7 % (92.0-98.5); BG OXYHEMOGLOBIN 88.3 % (94.0-97.0); BG PCO2 42.9 mmHg (35.0-45.0); BG PH 7.393 (7.350-7.450); BG PO2 61.6 mmHg (75.0-100.0); BG SAMPLE SITE RIGHT RADIAL; BG VENT MODE NASAL CANNULA
[2018-07-20] MEDS ORDERED: INSULIN GLARGINE UD 100 UNITS/ML SYR SUBCUT SCH (17:00)
[2018-07-20] MEDS ORDERED: EPOETIN ALFA 4000UNITS/ML VIAL SUBCUT SCH (21:00)
[2018-07-20] MEDS: INSULIN GLARGINE UD 100 UNITS/ML SYR SUBCUT SCH (21:24)
[2018-07-21] VITALS (29 sets, daily range): BP systolic 82–129; BP diastolic 53–71
[2018-07-21] MEDS: DEXAMETHASONE 4MG/ML 1ML VIAL IV SCH ×3 (02:32→14:51)
[2018-07-21] MEDS: BLOOD SUGAR DIAGNOSTIC STRIP TEST SCH ×3 (05:36→16:30)
[2018-07-21] MEDS: INSULIN LISPRO 100 UNITS/ML SUBCUT SCH ×3 (05:36→17:43)
[2018-07-21 05:52] LABS: HEMATOCRIT. 26.9 % (42.0-52.0); HEMOGLOBIN. 8.6 g/dL (14.0-18.0); MEAN CORPUSCULAR HEMOGLOBIN 27.4 pg (28.0-32.0); MEAN CORPUSCULAR VOLUME 85.4 fL (80.0-94.0); MEAN PLATELET VOLUME 9.6 fl (7.4-10.4); PLATELET 280 x1000/uL (130-400); RED BLOOD CELL COUNT 3.14 mill/uL (4.7-6.1); RED CELL DISTRIBUTION WIDTH 18.4 % (11.6-14.6)
[2018-07-21 07:29] LABS: PLATELET ESTIMATE NORMAL
[2018-07-21] MEDS: FAMOTIDINE 20MG/2ML VIAL IV SCH (08:19)
[2018-07-21] MEDS: DOCUSATE SODIUM 250MG CAPSULE PO SCH (08:19)
[2018-07-21] MEDS: METOPROLOL TARTRATE 25MG TABLET PO SCH (08:19)
[2018-07-21] MEDS: LEVETIRACETAM 500 MG in SODIUM CHLORIDE 0.9% 100 ML IV SCH (08:19)
[2018-07-21] MEDS: FOLIC ACID/VITAMIN B COMP W-C TABLET PO SCH (08:20)
[2018-07-21] MEDS: GABAPENTIN 100MG CAPSULE PO SCH ×3 (08:20→17:00)
[2018-07-21] MEDS: INSULIN GLARGINE UD 100 UNITS/ML SYR SUBCUT SCH (09:56)
[2018-07-21] MEDS ORDERED: VANCOMYCIN 1 G PREMIX 200 ML IV NR (10:00)
[2018-07-21] MEDS: DEXT 5%/LACTATED RINGERS 1,000 ML IV SCH (17:43)
== END 2018-07-21 19:55 | disposition expired | DRG 710 ==
LOC: ER 14:15 → EDBEDREQTM 16:13 → EDBEDREQ 16:13 → ENRESERV 20:45 → 5EST 07-12 00:28 → 3WST 07-18 11:00 → MICUSO 07-19 02:48
PROVIDERS: ADMIT Internal Medicine; ATTEND Internal Medicine
PROC: 5A1D70Z Performance of Urinary Filtration, Intermittent, Less than 6 Hours Per Day (ICD-10-PCS; 2018-07-11)
PROC: 5A1D70Z Performance of Urinary Filtration, Intermittent, Less than 6 Hours Per Day (ICD-10-PCS; 2018-07-12)
PROC: 5A1D70Z Performance of Urinary Filtration, Intermittent, Less than 6 Hours Per Day (ICD-10-PCS; 2018-07-14)
PROC: 30233N1 Transfusion of Nonautologous Red Blood Cells into Peripheral Vein, Percutaneous Approach (ICD-10-PCS; 2018-07-14)
PROC: 02HV33Z Insertion of Infusion Device into Superior Vena Cava, Percutaneous Approach (ICD-10-PCS; 2018-07-15)
PROC: B548ZZA Ultrasonography of Superior Vena Cava, Guidance (ICD-10-PCS; 2018-07-15)
PROC: 5A1D70Z Performance of Urinary Filtration, Intermittent, Less than 6 Hours Per Day (ICD-10-PCS; 2018-07-15)
PROC: 0DB68ZX Excision of Stomach, Via Natural or Artificial Opening Endoscopic, Diagnostic (ICD-10-PCS; 2018-07-17)
PROC: 047L34Z Dilation of Left Femoral Artery with Drug-eluting Intraluminal Device, Percutaneous Approach (ICD-10-PCS; 2018-07-18)
PROC: 047M3ZZ Dilation of Right Popliteal Artery, Percutaneous Approach (ICD-10-PCS; 2018-07-18)
PROC: 5A1D70Z Performance of Urinary Filtration, Intermittent, Less than 6 Hours Per Day (ICD-10-PCS; 2018-07-18)
PROC: 00C40ZZ Extirpation of Matter from Intracranial Subdural Space, Open Approach (ICD-10-PCS; 2018-07-19)
PROC: 00U207Z Supplement Dura Mater with Autologous Tissue Substitute, Open Approach (ICD-10-PCS; 2018-07-19)
PROC: 4A103BD Monitoring of Intracranial Pressure, Percutaneous Approach (ICD-10-PCS; 2018-07-19)
PROC: 00H032Z Insertion of Monitoring Device into Brain, Percutaneous Approach (ICD-10-PCS; 2018-07-19)
PROC: 5A1D70Z Performance of Urinary Filtration, Intermittent, Less than 6 Hours Per Day (ICD-10-PCS; 2018-07-19)
PROC: 30233L1 Transfusion of Nonautologous Fresh Plasma into Peripheral Vein, Percutaneous Approach (ICD-10-PCS; 2018-07-19)
PROC: 30233R1 Transfusion of Nonautologous Platelets into Peripheral Vein, Percutaneous Approach (ICD-10-PCS; 2018-07-19)
PROC: 30233K1 Transfusion of Nonautologous Frozen Plasma into Peripheral Vein, Percutaneous Approach (ICD-10-PCS; 2018-07-19)
PROC: 5A1945Z Respiratory Ventilation, 24-96 Consecutive Hours (ICD-10-PCS; 2018-07-19)
PROC: 0BH17EZ Insertion of Endotracheal Airway into Trachea, Via Natural or Artificial Opening (ICD-10-PCS; 2018-07-19)
PROC: 00B70ZZ Excision of Cerebral Hemisphere, Open Approach (ICD-10-PCS; principal; 2018-07-19 03:09)
DX: A41.9 Sepsis, unspecified organism (principal); I61.9 Nontraumatic intracerebral hemorrhage, unspecified; I63.512 Cerebral infarction due to unspecified occlusion or stenosis of left middle cerebral artery; J96.00 Acute respiratory failure, unspecified whether with hypoxia or hypercapnia; I13.2 Hypertensive heart and chronic kidney disease with heart failure and with stage 5 chronic kidney disease, or end stage renal disease; J18.9 Pneumonia, unspecified organism; E44.0 Moderate protein-calorie malnutrition; G93.41 Metabolic encephalopathy; D68.9 Coagulation defect, unspecified; E11.22 Type 2 diabetes mellitus with diabetic chronic kidney disease; E11.42 Type 2 diabetes mellitus with diabetic polyneuropathy; E11.52 Type 2 diabetes mellitus with diabetic peripheral angiopathy with gangrene; E83.39 Other disorders of phosphorus metabolism; E87.8 Other disorders of electrolyte and fluid balance, not elsewhere classified; E87.5 Hyperkalemia; N18.6 End stage renal disease; E78.00 Pure hypercholesterolemia, unspecified; E87.1 Hypo-osmolality and hyponatremia; E83.41 Hypermagnesemia; D63.8 Anemia in other chronic diseases classified elsewhere; M94.0 Chondrocostal junction syndrome [Tietze]; D63.1 Anemia in chronic kidney disease; E78.5 Hyperlipidemia, unspecified; H57.02 Anisocoria; I25.10 Atherosclerotic heart disease of native coronary artery without angina pectoris; I45.81 Long QT syndrome; I50.22 Chronic systolic (congestive) heart failure; F17.200 Nicotine dependence, unspecified, uncomplicated; I70.201 Unspecified atherosclerosis of native arteries of extremities, right leg; F10.10 Alcohol abuse, uncomplicated; K29.60 Other gastritis without bleeding; L03.116 Cellulitis of left lower limb; T45.515A Adverse effect of anticoagulants, initial encounter; Y92.89 Other specified places as the place of occurrence of the external cause; Z79.01 Long term (current) use of anticoagulants; Z82.49 Family history of ischemic heart disease and other diseases of the circulatory system; Z99.2 Dependence on renal dialysis; Z68.33 Body mass index [BMI] 33.0-33.9, adult; Z95.2 Presence of prosthetic heart valve; Z95.5 Presence of coronary angioplasty implant and graft; Z88.0 Allergy status to penicillin; Z88.1 Allergy status to other antibiotic agents; Z79.82 Long term (current) use of aspirin; Z79.4 Long term (current) use of insulin; Z79.899 Other long term (current) drug therapy
CPT/HCPCS: 36415; 36569; 36600; 37226; 71045; 73630; 75635; 75710; 77001; 78610; 80048; 80061; 80069; 80202; 82270; 82375; 82550; 82553; 82728; 82805; 82962; 83036; 83540; 83550; 83605; 83735; 83880; 84100; 84134; 84145; 84439; 84443; 84484; 85347; 85379; 86850; 86900; 86920; 86927; 88304; 88305; 88312; 88313; 93005; 93306; 93923; 93970; 94003; 96365; 96375; 99291; A4216; A6261; A9512; C1713; C1725; C1760; C1769; C1874; C1887; C1893; C1894; C2623; C9113; G0482; J0690; J0885; J1100; J1170; J1580; J1644; J1650; J1815; J1953; J1956; J2250; J2370; J2405; J2543; J2704; J2720; J3010; J3370; J3430; J3490; J7040; J7050; J7060; J7120; J7121; P9016; P9017; P9034; Q9963; Q9967